=== PATIENT | female | born 1935 | race Caucasian/White ===

== ENCOUNTER → 2021-01-30 | Day surgery (SDC) | payer MEDICARE, OTHER ==
[~2021-01-30] MED LIST: ACETAMINOPHEN500 MG PO; AMLODIPINE BESY10 MG PO; ARICEPT10 MG PO; BIOFREEZE89 ML TD; BUSPIRONE HCL15 MG PO; CILOSTAZOL100 MG PO; COZAAR25 MG PO; EFFEXOR XR 150150 MG PO; ELMIRON100 MG PO; FERROUS SULFAT325 MG PO; FOSAMAX70 MG PO; HYDRALAZINE HC100 MG PO; HYDROCODON-ACE1 EAC4 PO; JANUVIA25 MG PO; LASIX20 MG PO; LATANOPROST2.5 ML EYEBOTH; LORATADINE10 MG PO; MAALOX ADVANCE355 ML PO; METAMUCIL POWD822 GM PO; NAMENDA10 MG PO; PEPCID40 MG PO; PRAVASTATIN SOD40 MG PO; PROTONIX 40 MG40 M1 PO; QUETIAPINE FUMA50 MG PO; REMERON30 MG PO; TOPROL XL25 MG PO; TROSPIUM CHLORI20 MG PO; VALTREX500 MG PO; VITAMIN C 500500 MG PO; VITAMIN D PO; VITAMIN D325 MCG PO
== END | disposition home or self-care (01) ==
LOC: OR 07:15
DX: K57.30 Diverticulosis of large intestine without perforation or abscess without bleeding (principal); K56.50 Intestinal adhesions [bands], unspecified as to partial versus complete obstruction; R19.7 Diarrhea, unspecified; K21.9 Gastro-esophageal reflux disease without esophagitis; K59.89 Other specified functional intestinal disorders; E11.9 Type 2 diabetes mellitus without complications; I10 Essential (primary) hypertension; E78.5 Hyperlipidemia, unspecified; M81.0 Age-related osteoporosis without current pathological fracture; Z90.49 Acquired absence of other specified parts of digestive tract; F32.9 Major depressive disorder, single episode, unspecified; Z85.038 Personal history of other malignant neoplasm of large intestine; Z20.822 Contact with and (suspected) exposure to COVID-19
CPT/HCPCS: 82962; J2704; J7040